=== PATIENT | male | born 1990 | race Hispanic/Latino ===

== ENCOUNTER 2024-07-06 19:14 | Emergency (ER) | payer BC ==
[~2024-07-06] VITALS: Ht 180.3 cm; Wt 74.4 kg
[2024-07-06 19:39] LABS: BASOPHILS # (AUTO) 0.02 K/uL (0.00-0.20); BASOPHILS % (AUTO) 0.4 % (0.0-5.0); EOSINOPHILS # (AUTO) 0.08 K/uL (0.00-0.70); EOSINOPHILS % (AUTO) 1.6 % (0.0-8.0); HEMATOCRIT 46.1 % (42-54); IMMATURE GRANULOCYTE ABSOLUTE 0.01 K/uL (0-1); LYMPHOCYTES % (AUTO) 38.6 % (21.0-51.0); MEAN CORPUSCULAR HEMOGLOBIN 31.3 pg (27.0-33.0); MEAN CORPUSCULAR HGB CONC 34.7 g/dL (32.0-36.0); MONOCYTES # (AUTO) 0.3 K/uL (0.1-1.0); MONOCYTES % (AUTO) 5.2 % (3.0-13.0); NEUTROPHILS # (AUTO) 2.8 K/uL (1.8-7.7); PLATELET COUNT (AUTO) 193 K/uL (130-400); RED BLOOD CELL COUNT(AUTO) 5.12 MIL/uL (4.50-6.20); RED CELL DISTRIBUTION WIDTH 12.7 % (11.0-15.5); WHITE BLOOD COUNT (AUTO) 5.2 K/uL (4.8-10.8)
[2024-07-06 19:50] LABS: POTASSIUM 3.4 mmol/L (3.5-5.1)
--- NOTE | 2024-07-06 19:58 | ERN ---
ED Note History of Present Illness Stated Complaint: CHEST PAIN Chief Complaint: Abdominal Pain Time Seen by MD: 19:22 Time Seen by Midlevel: 19:22 Dictation: The patient is a 33-year-old male with no past medical history who presents to the emergency department with multiple complaints. Patient reports that he started with generalized abdominal pain onset yesterday. Reports shortness of breath, palpitations, left-sided chest pain onset today. Patient also reports a headache. Two episodes of nonbloody diarrhea. Denies any fevers, nausea or vomiting. Allergies: Coded Allergies: No Known Allergies (Unverified Allergy, Unknown, 07/06/24) Past Medical History Past Medical History: No Pertinent History Surgical History: None RN Note Reviewed/Agreed w/PFSH: Yes Review of System Dictation Constitutional: Negative for fever,chills, and weight loss Eyes: Negative for injury, pain,redness, and discharge ENT: Negative for injury,pain or swelling Cardiovascular: Negative for , and edema positive for chest pain, palpitations Respiratory: Negative for cough, and wheezing, positive for shortness of breath Abdomen/GI: Negative for nausea, vomiting, and constipation positive for abdominal pain, diarrhea Back: Negative for injury and pain : Negative for injury, bleeding and discharge MS/Extremity: Negative for injury and deformity Skin: Negative for rash, and discoloration Neuro: Negative for weakness, numbness, tingling, and seizure positive for headache Psych: Negative for suicide ideation, homicidal ideation, and hallucinations Initial Vital Sign VS Vital Signs Date Time Temp Pulse Resp B/P (MAP) Pulse Ox O2 Delivery O2 Flow Rate FiO2 07/06/24 19:21 98.2 76 20 139/92 100 Room Air 07/06/24 23:10 0 21 Physical Exam Dictation Vital Signs reviewed General Appearance: Alert, oriented x 3, no acute distress, well developed, nourished. Head and Face: non-traumatic. Eyes: PERRL, pink conjunctivas, eyelid no trauma, anterior chamber with arcus senilis. Ears: Pinnas intact and no signs of trauma or erythema ear canals clear and no discharge TM no erythema Nose: No discharge, no bleeding. Oropharynx: Mouth normal, tongue pink. pharynx clear,no erythema, tonsils no exudates, no abscesses noted, mucous membrane moist Neck: Supple, non-tender, no thyromegaly, no masses, no JVD, no bruits Breast:Deferred Chest:No tenderness, no crepitus, no paradoxical movement, no retractions Lungs:Clear, well-ventilated, symmetric, no rales, no wheezing, no rhonchi, no stridor, good breath sounds bilaterally Heart: Regular rate, regular rhythm, no murmur, no gallops Vascular: no peripheral edema, Abdomen: Soft, positive bowel sounds, nondistended, no guarding, nontender, no rebound, no masses no hepatomegaly, no splenomegaly, no Floyd's sign, no hernias. Rectal: Deferred Genital: Deferred Neurological: Normal speech, motor function intact, sensory function intact Musculoskeletal: Neck nontender, full range of motion, back nontender, full range of motion, Extremities: nontender, full range of motion Skin: Color pink, dry, no turgor, no rash, no lacerations, no abrasions, no contusions. Lymphatic: Deferred Results (Laboratory/Radiology) Laboratory/Radiology Laboratory Tests Test 07/06/24 19:27 07/06/24 19:31 07/06/24 22:53 Urine Color LIGHT-YELLOW (YELLOW) Urine Appearance CLEAR (CLEAR) Urine pH 5.5 (5.0-8.0) Urine Specific [place] 1.013 (1.001-1.031) Urine Protein NEGATIVE mg/dL (NEGATIVE) Urine Glucose (UA) NEGATIVE mg/dL (NEGATIVE) Urine Ketones NEGATIVE mg/dL (NEGATIVE) Urine Occult Blood NEGATIVE (NEGATIVE) Urine Nitrate NEGATIVE (NEGATIVE) Urine Bilirubin NEGATIVE mg/dL (NEGATIVE) Urine Urobilinogen 0.2 mg/dL (0.2-1.0) Urine Leukocyte Esterase NEGATIVE Teresa/uL Urine Opiates Screen NEGATIVE (NEGATIVE) Urine Barbiturates Screen NEGATIVE (NEGATIVE) Urine Phencyclidine Screen NEGATIVE (NEGATIVE) Urine Amphetamines Screen NEGATIVE (NEGATIVE) Urine Benzodiazepines Screen NEGATIVE (NEGATIVE) Urine Cocaine Screen NEGATIVE (NEGATIVE) Urine Marijuana (THC) Screen NEGATIVE (NEGATIVE) White Blood Count 5.2 K/uL (4.8-10.8) Red Blood Count 5.12 MIL/uL (4.50-6.20) Hemoglobin 16.0 g/dL (14.0-18.0) Hematocrit 46.1 % (42-54) Mean Corpuscular Volume 90.0 fL (79-99) Mean Corpuscular Hemoglobin 31.3 pg (27.0-33.0) Mean Corpuscular Hemoglobin Concent 34.7 g/dL (32.0-36.0) Red Cell Distribution Width 12.7 % (11.0-15.5) Platelet Count 193 K/uL (130-400) Mean Platelet Volume 10.0 fL (7.5-10.5) Immature Granulocyte % (Auto) 0.2 % (0-1) Neutrophils (%) (Auto) 54.0 % (40.0-77.0) Lymphocytes (%) (Auto) 38.6 % (21.0-51.0) Monocytes (%) (Auto) 5.2 % (3.0-13.0) Eosinophils (%) (Auto) 1.6 % (0.0-8.0) Basophils (%) (Auto) 0.4 % (0.0-5.0) Neutrophils # (Auto) 2.8 K/uL (1.8-7.7) Lymphocytes # (Auto) 2.0 K/uL (1.0-4.8) Monocytes # (Auto) 0.3 K/uL (0.1-1.0) Eosinophils # (Auto) 0.08 K/uL (0.00-0.70) Basophils # (Auto) 0.02 K/uL (0.00-0.20) Absolute Immature Granulocyte (auto 0.01 K/uL (0-1) Nucleated Red Blood Cells 0.0 % (0.0-0.19) Sodium Level 139 mmol/L (136-145) Potassium Level 3.4 mmol/L (3.5-5.1) L Chloride Level 103 mmol/L (101-111) Carbon Dioxide Level 31 mmol/L (21-32) Blood Urea Nitrogen 14 mg/dL (7-18) Creatinine 1.0 mg/dL (0.5-1.3) Glomerular Filtration Rate Calc 103 mL/min (>90) Random Glucose 131 mg/dL (70-105) H Total Calcium 9.2 mg/dL (8.5-10.1) Total Bilirubin 0.4 mg/dL (0.2-1.0) Direct Bilirubin 0.1 mg/dL (0.0-0.3) Aspartate Amino Transf (AST/SGOT) 17 U/L (10-37) Alanine Aminotransferase (ALT/SGPT) 21 U/L (12-78) Alkaline Phosphatase 127 U/L (50-136) Total Creatine Kinase 111 U/L (21-232) Troponin I High Sensitivity 5 ng/L (4-75) Total Protein 8.2 g/dL (6.0-8.3) Albumin 4.0 g/dL (3.5-5.0) Lipase 36 U/L (16-77) Influenza Type A Antigen Negative For Type A Influenza Type B Antigen Negative For Type B SARS-CoV-2 Antigen (Rapid) PRESUMPTIVE NEGATIVE Labs Reviewed?: Yes EKG: (+) rhythm (Sinus rhythm) EKG Comment: Date:07/06/2024 Time:1920 Ventricular rate: Ventricular rate 73, regular rate and rhythm, normal sinus rhythm OK interval:140 QRS duration:85 QT/QTc:1345 EKG interpretation: Sinus rhythm Reviewed by ED Attending no STEMI ED Course ED Course Orders Procedure Category Date Status Time 12 Lead Ekg Tracing- EKG 07/06/24 Complete Technical 19:20 Vital Signs Per CPOE 07/06/24 Transmitted Routine 19:20 Saline Lock Iv CPOE 07/06/24 Transmitted 19:20 Cbc With Differential LAB 07/06/24 Complete 19:20 Lipase LAB 07/06/24 Complete 19:20 Urinalysis Profile LAB 07/06/24 Complete 19:20 Basic Metabolic Panel LAB 07/06/24 Complete 19:20 Hepatic Function Panel LAB 07/06/24 Complete 19:44 Troponin I High LAB 07/06/24 Complete Sensitivity 19:44 Creatine Kinase, Total LAB 07/06/24 Complete 19:44 Covid19 (Sars Antigen LAB 07/06/24 Complete Rapid) 19:44 Influenza Type A & B, LAB 07/06/24 Complete Rapid 19:44 Acetaminophen 500mg PHA 07/06/24 Complete Tab (Tylenol 500mg T 20:00 0.9%Nacl 1000ml (Ns PHA 07/06/24 Complete 1000ml) 20:00 Chest 1vw RAD 07/06/24 Taken 19:44 Drug Screen Urine LAB 07/06/24 Complete 19:44 Pantoprazole 40mg Inj PHA 07/06/24 Complete (Protonix 40mg Inj 20:00 Current Medications Medications (Trade) Dose Ordered Sig/Keeley Route PRN Reason Start Time Stop Time Status Last Admin Dose Admin Acetaminophen (TYLenol 500MG TAB) 1,000 mg ONCE ONCE PO 07/06/24 20:00 07/06/24 20:01 DC 07/06/24 23:16 Pantoprazole Sodium (PROTonix 40MG INJ) 40 mg ONCE ONCE IVP 07/06/24 20:00 07/06/24 20:01 DC 07/06/24 23:15 Sodium Chloride 1,000 ml @ 0 mls/hr ONCE ONCE IV 07/06/24 20:00 07/06/24 20:01 DC 07/06/24 23:16 Vital Signs Date Time Temp Pulse Resp B/P (MAP) Pulse Ox O2 Delivery O2 Flow Rate FiO2 07/06/24 23:10 98.4 79 17 147/69 98 Room Air* 0 21 07/06/24 19:21 98.2 76 20 139/92 100 Room Air Medical Decision Making MDM The patient is a 33-year-old male with no past medical history who presents to the emergency department with multiple complaints. Patient reports that he started with generalized abdominal pain onset yesterday. Reports shortness of breath, palpitations, left-sided chest pain onset today. Patient also reports a headache. Two episodes of nonbloody diarrhea. Denies any fevers, nausea or vomiting. CBC shows no leukocytosis, no anemia, chemistry showed mild hypokalemia, normal renal function, negative troponin, negative lipase, normal liver enzymes, urinalysis unremarkable, chest x-ray showed no acute pathology. Patient no longer having any pain. Continues with a nontender abdomen. , neurologically intact. Agrees to be discharged and follow up with PCP. Patient no acute distress. Differential diagnosis: Gastroenteritis, pancreatitis, electrolyte imbalance, ACS, dehydration Need for hospitalization: Patient does not meet criteria for hospitalization. There are no social concerns with this patient. DX & DISP Disposition: Discharge Departure Impression: Primary Impression: Viral gastroenteritis Additional Impressions: Chest pain, Palpitations Condition: Stable Additional Instructions: Please follow up with your primary doctor in 1-2 days. If symptoms worsen please return to ER. FOLLOW-UP WITH PRIMARY CARE PROVIDER IN 1 TO 2 DAYS. TAKE MEDICATIONS DIRECTED HERE IN THE EMERGENCY ROOM. OKAY TO CONTINUE HOME MEDICATIONS UNLESS OTHERWISE DISCUSSED DURING YOUR VISIT IN THE EMERGENCY ROOM TODAY. RETURN TO YOUR NEAREST EMERGENCY ROOM IF SYMPTOMS WORSEN OR IF THERE IS NO IMPROVEMENT. CALL 911 IF YOU NEED IMMEDIATE ASSISTANCE. TAKE TYLENOL OR MOTRIN [id number] NEEDED AND IF NO CONTRAINDICATIONS ARE PRESENT. INCREASE ORAL HYDRATION. A WOUND CULTURE OR URINE CULTURE WAS ORDERED HERE IN THE EMERGENCY ROOM DEPARTMENT PLEASE FOLLOW-UP WITH PRIMARY CARE PROVIDER AND ADVISE THEM TO GET REPEAT PORTS FROM OUR FACILITY. IF YOU HAD ANY DANDRE WRAP/SPLINTS THAT WERE APPLIED HERE, PLEASE DO NOT REMOVE THEM UNTIL YOU SEE YOUR PRIMARY CARE OR SPECIALTY. Referrals: SELF,REFERRAL (PCP) Time of Disposition: 00:02 I have reviewed the case, and I agree with, Diagnosis and Plan IGO [facility] Jul 06, 2024 19:58
[2024-07-06 20:19] LABS: APPEARANCE,URINE CLEAR (CLEAR); BILIRUBIN,URINE NEGATIVE (NEGATIVE); COLOR,URINE LIGHT-YELLOW (YELLOW); GLUCOSE, URINE (UA) NEGATIVE (NEGATIVE); KETONES,URINE NEGATIVE (NEGATIVE); LEUKOCYTE ESTERASE ,URINE NEGATIVE Leu/uL (NEGATIVE); NITRATE,URINE NEGATIVE (NEGATIVE); OCCULT BLOOD,URINE NEGATIVE (NEGATIVE); PH,URINE 5.5 (5.0-8.0); PROTEIN,URINE NEGATIVE (NEGATIVE); UROBILINOGEN,URINE 0.2 mg/dL (0.2-1.0)
[2024-07-06 20:21] LABS: ADD UA MICROSCOPIC NO
[2024-07-06 20:21] LABS: BILIRUBIN,DIRECT 0.1 mg/dL (0.0-0.3); BILIRUBIN,TOTAL 0.4 mg/dL (0.2-1.0); TOTAL PROTEIN, SERUM 8.2 g/dL (6.0-8.3)
--- NOTE | 2024-07-06 20:55 | EKG ---
[facility] Test Date: 2024-07-06 Test Time: 19:21:55 Pat Name: TWIN GIORDANO Department: ED Room: Gender: M [employer]: [id number] : 1990 Requested By: KATIE PALAFOX Order Number: [id number] Reading MD: Jonna Arroyo Measurements Intervals Lorman Rate: 73 P: 75 PA: 140 QRS: 45 QRSD: 85 T: 60 QT: 345 QTc: 380 Interpretive Statements Sinus rhythm ST elevation, consider inferior injury No previous ECG available for comparison Electronically Signed On 07-07-2024 17:09:43 HAIR [employer]ESS[employer] by Jonna Arroyo Please click the below link to view image of tracing.
[2024-07-06 23:10] VITALS: BP 147/69; PULSE 79; RESP 17; TEMP 98.5; O2SAT 98
[2024-07-06] MEDS: PANTOPrazole 40 MG/VIAL IVP ONE (23:15)
[2024-07-06] MEDS: 0.9%NACL 1000ML 1,000 ML IV ONE (23:16)
[2024-07-06] MEDS: acetaMINOPHEN 500 MG TABLET PO ONE (23:16)
[2024-07-06 23:34] LABS: AMPHET/METH SCREEN,URINE NEGATIVE (NEGATIVE); BARBITURATE SCREEN, URINE NEGATIVE (NEGATIVE); BENZODIAZEPINES SCREEN,URINE NEGATIVE (NEGATIVE); CANNABINOID SCREEN,URINE NEGATIVE (NEGATIVE); COCAINE SCREEN,URINE NEGATIVE (NEGATIVE); OPIATE SCREEN,URINE NEGATIVE (NEGATIVE); PHENCYCLIDINE SCREEN,URINE NEGATIVE (NEGATIVE)
[2024-07-06 23:58] LABS: COVID19 (SARS ANTIGEN RAPID) PRESUMPTIVE NEGATIVE (NEGATIVE); INFLUENZA TYPE A Negative For Type A (NEGATIVE); INFLUENZA TYPE B Negative For Type B (NEGATIVE)
--- NOTE | 2024-07-07 08:39 | HMCIMG ---
CHEST 1VW REASON: sob COMPARISON: None. FINDINGS: Single view of the chest was obtained. Lungs are clear. Heart size is normal. There is no pulmonary vascular congestion. Mediastinum and bony thorax appear unremarkable. IMPRESSION: 1. Normal single view chest x-ray.
== END 2024-07-07 00:10 | disposition home or self-care (01) ==
LOC: EDH 19:14
DX: A08.4 Viral intestinal infection, unspecified (principal); R07.89 Other chest pain; R00.2 Palpitations; Z20.822 Contact with and (suspected) exposure to COVID-19; Z79.899 Other long term (current) drug therapy
CPT/HCPCS: 99284; 96374; 71045; 87426; 82550; 80076; 84484; 80048; 80305; 83690; 85025; 87804 ×2; 36415; 93005; 81003; J7030; J2470